=== PATIENT | female | born 1970 | race African-American/Black ===

== ENCOUNTER 2018-09-02 16:09 | Emergency (ER) | payer SELFPAY ==
[~2018-09-02] VITALS: Ht 160 cm; Wt 54.4 kg
[~2018-09-02 16:09] MED LIST: CLOTRIMAZOLE VA21 GM VAGIN; NKM
[2018-09-02 16:26] VITALS: BP 137/76
--- NOTE | 2018-09-02 16:29 | NUR ---
ED Nurse Note: patient walked in by her self complaining of right knee pain 4/10. per patient she hears a cracking sounds every time when she steps on her right leg. VSS at this time, skin is dry intact, warm to touch. AAO x 4.
--- NOTE | 2018-09-02 17:28 | Emergency Room Report ---
History of Present Illness General Chief Complaint: Pain Source: Patient (Clover Tirado) Present Illness HPI 48-year-old female presents to the emergency department complaining of 7 out of 10 in severity right leg pain with swelling progressive 2 weeks. Patient denies notable trauma or fall she denies warmth, erythema, fevers or chills. She reports several years ago she fell and landed on the knee multiple times that was unaffected by the injury then. She denies history of gout and denies paresthesias.Pt. denies sensation of instability. pain is exacerbated with walking. pt. reports clicking sensation as well. (Clover Tirado) Allergies: Coded Allergies: No Known Allergies (Unverified , 09/02/18) Patient History Past Medical History: see triage record Past Surgical History: none Pertinent Family History: none Last Menstrual Period: NO MORE Now: No Reviewed Nursing Documentation: PMH: Agreed; PSxH: Agreed (Clover Tirado) Nursing Documentation-PMH Past Medical History: No Stated History (Clover Tirado) Review of Systems All Other Systems: negative except mentioned in HPI (Clover Tirado) Physical Exam Vital Signs Date Time Temp Pulse Resp B/P (MAP) Pulse Ox O2 Delivery O2 Flow Rate FiO2 09/02/18 16:14 97.9 99 16 130/80 96 Room Air Sp02 EP Interpretation: reviewed, normal General Appearance: no apparent distress, alert, GCS 15, non-toxic Head: normocephalic, atraumatic Eyes: bilateral eye normal inspection, bilateral eye PERRL ENT: hearing grossly normal, normal voice Neck: full range of motion Respiratory: lungs clear, normal breath sounds, speaking full sentences Cardiovascular #1: regular rate, rhythm, no edema, normal capillary refill Cardiovascular #2: 2+ dorsalis pedis (R) Musculoskeletal: back normal, gait/station normal, normal range of motion, tender - anterior right knee, mild swelling noted. no erythema or warmth. no clicking on exam. no increased laxity of the ligaments. Neurologic: alert, oriented x3, responsive, motor strength/tone normal, sensory intact, normal gait - pt. observed to have normal gait with out grimmacing, speech normal, grossly normal Psychiatric: judgement/insight normal Skin: normal color, no rash, warm/dry, well hydrated Lymphatic: no adenopathy (Clover Tirado) Medical Decision Making PA Attestation Dr. Orozco is my supervising Physician whom patient management has been discussed with. (Clover Tirado) Diagnostic Impression: Primary Impression: Knee pain, right anterior Additional Impression: High-riding patella ER Course 48-year-old female presents to the emergency department complaining of 7 out of 10 in severity right leg pain with swelling progressive 2 weeks. Patient denies notable trauma or fall she denies warmth, erythema, fevers or chills. She reports several years ago she fell and landed on the knee multiple times that was unaffected by the injury then. She denies history of gout and denies paresthesias.Pt. denies sensation of instability. pain is exacerbated with walking. pt. reports clicking sensation as well. Ddx considered but are not limited to Fracture, dislocation, contusion, Sprain/ Strain/Spasm , meniscal injury or septic joint just to name a few. Vital signs: are WNL, pt. is afebrile H&PE are most consistent with musculoskeletal injury will perform imaging to r/ o fractures/dislocations. ORDERS: - X-ray Right knee 3 views - negative for fx, Dislocation, or significant soft tissue injury, per preliminary read in ED, and signed by MARTA Tirado , my supervising physician has reviewed, and agrees with my interpretation. ED INTERVENTIONS: - -Patient is provided with crutches and instructed on their use -I do not identify an emergent condition at this time. With current presentation , pt. is stable for close outpatient follow up and conservative treatment. D/ w pt. to return promptly to ED with worsening or new symptoms.- Pt. verbalizes' understanding and agreement with proposed treatment plan.proposed treatment plan. DISCHARGE: At this time pt. is stable for d/c to home. Will provide printed patient care instructions, and any necessary prescriptions. Care plan and follow up instructions have been discussed with the patient prior to discharge. (Clover Tirado) Other X-Ray Diagnostic Results Other X-Ray Diagnostic Results : X-Ray ordered: Right knee # of Views/Limited Vs Complete: 3 View Indication: Pain EP Interpretation: Yes PA Xray: Interpretation reviewed, by supervising MD, and agrees with findings. Interpretation: no dislocation, no soft tissue swelling, no fractures, other - patella louie. Impression: No acute disease (Clover Tirado) Other X-Ray Diagnostic Results : Electronically Signed by: P A documentation of Xray reviewed by me and is accurate, Moy Orozco MD (Moy Orozco MD) Last Vital Signs Date Time Temp Pulse Resp B/P (MAP) Pulse Ox O2 Delivery O2 Flow Rate FiO2 09/02/18 16:26 98.0 72 16 137/76 99 Room Air Status: improved (Clover Tirado) Disposition: HOME, SELF-CARE Condition: Stable Scripts Naproxen* (NAPROXEN*) 500 Mg Tablet.dr 500 MG ORAL TWICE A DAY for 7 Days, #15 TAB Prov: Clover Tirado 09/02/18 Patient Instructions: Knee Pain, [id number] Additional Instructions: Take medications as directed. Follow up with an [facility]ISTR[facility] in 3-5 days, even if your symptoms have resolved. If symptoms persist MRI may be required at the discretion of your PCP or Ortho Specialist. --Please review list of primary care clinics, if you do not already have a primary care provider who can give you an Orthopedic Referral. Return sooner to ED if new symptoms occur, or current symptoms become worse. Do not drink alcohol, drive, or operate heavy machinery while taking [place] as this may cause drowsiness. - Please note that this Emergency Department Report was dictated using [employer] department supervisor technology software, occasionally this can lead to erroneous entry secondary to interpretation by the dictation equipment. Clover Tirado Sep 02, 2018 17:28 Moy Orozco MD Sep 03, 2018 04:42
[2018-09-02] MEDS ORDERED: NAPROXEN500 M1 ORAL (17:30)
[2018-09-02 17:37] VITALS: BP 135/76
--- NOTE | 2018-09-02 17:38 | NUR ---
ER DISCHARGE NOTE: Patient is cleared to be discharged per ERMD, pt is aox4, on room air, with stable vital signs. pt was given dc and prescription instructions, pt was able to verbalize understanding, pt id band removed. pt is able to ambulate with steady gait. pt took all belongings. crutches were provided.
--- NOTE | 2018-09-03 10:55 | Diagnostic Imaging Report ---
Indications: Right knee pain Technique: Three views of the right knee Comparison: None Findings: No acute fractures. No dislocations. Joint spaces are preserved. No radiopaque foreign body. Normal mineralization. Impression: No acute process
== END 2018-09-02 17:37 | disposition home or self-care (01) ==
LOC: EMR 16:54
DX: M25.561 Pain in right knee (principal)
CPT/HCPCS: 99283